=== PATIENT | female | born 1990 | race African-American/Black ===

== ENCOUNTER 2024-02-21 16:54 | Emergency (ER) | payer OTHER ==
[2024-02-21] MEDS ORDERED: Cyclobenzaprine 10 MG TAB ONE (17:09)
[2024-02-21] MEDS ORDERED: Ketorolac Tromethamine 30 MG (1 mL) VIAL ONE (17:09)
== END 2024-02-21 17:28 | disposition home or self-care (01) ==
LOC: BURERS 16:54
DX: M62.830 Muscle spasm of back (principal); V49.9XXA Car occupant (driver) (passenger) injured in unspecified traffic accident, initial encounter
CPT/HCPCS: 96372; 99283; J1885